=== PATIENT | male | born 1985 | race Caucasian/White ===

== ENCOUNTER 2020-09-25 15:06 | Emergency (ER) | payer BC ==
[~2020-09-25] VITALS: Ht 172.7 cm; Wt 158.8 kg
== END 2020-09-25 18:00 | disposition home or self-care (01) ==
LOC: ER1 15:06
DX: Z23 Encounter for immunization (principal); U07.1 COVID-19; R06.02 Shortness of breath; I10 Essential (primary) hypertension; F17.290 Nicotine dependence, other tobacco product, uncomplicated; Z88.6 Allergy status to analgesic agent
CPT/HCPCS: 99284

== ENCOUNTER 2020-09-28 17:37 | Emergency (ER) | payer BC ==
[2020-09-28 20:14] LABS: HEMOGLOBIN 12.7 gm/dl (14.0-17.5); RED BLOOD COUNT 4.53 M/UL (4.20-5.50)
[2020-09-28 20:35] LABS: BUN/CREATININE RATIO 9 (0-10)
[2020-09-28] MEDS ORDERED: HYDROCODON-ACE1 EAC4 PO (21:14)
[2020-09-28] MEDS ORDERED: FLOMAX 0.4 MG0.4 MG PO (21:14)
[2020-09-28] MEDS ORDERED: ZOFRAN ODT 4 MG4 MG PO (21:16)
== END 2020-09-28 21:26 | disposition home or self-care (01) ==
LOC: ER1 17:37
PROVIDERS: Physician Assistant
DX: N13.2 Hydronephrosis with renal and ureteral calculous obstruction (principal); F17.290 Nicotine dependence, other tobacco product, uncomplicated
CPT/HCPCS: 80053; 81001; 83690; 85025; 87086; 96372; 99284; J2270